=== PATIENT | male | born 1965 | race Caucasian/White ===

== ENCOUNTER → 2017-08-23 13:16 | Outpatient (CLI) | payer SELFPAY | END | disposition home or self-care (01) | LOC: D.LABREF 13:16 | DX: D36.7 Benign neoplasm of other specified sites (principal) ==

== ENCOUNTER → 2017-11-04 16:48 | Outpatient (CLI) | payer SELFPAY | END | disposition home or self-care (01) | LOC: D.LABREF 16:48 | DX: D22.5 Melanocytic nevi of trunk (principal) ==